=== PATIENT | male | born 1965 | race Caucasian/White ===

== ENCOUNTER 2020-02-26 13:52 | Emergency (ER) | payer OTHER ==
[~2020-02-26] VITALS: Ht 182.9 cm; Wt 59.0 kg
[2020-02-26] MEDS ORDERED: SYMBICORT160 MCG/4. INH (14:03)
[2020-02-26] MEDS ORDERED: ALBUTEROL2.5 MG/31 INH (14:03)
[2020-02-26] MEDS ORDERED: PROAIR HFA8.5 GM INH (14:03)
[2020-02-26] MEDS ORDERED: ZPAK PO (15:08)
[2020-02-26] MEDS ORDERED: PREDNISONE 20 M20 M1 PO (15:08)
[2020-02-26 15:31] VITALS: BP 114/79
== END 2020-02-26 15:31 | disposition home or self-care (01) ==
LOC: M.ERS 13:52
DX: J44.1 Chronic obstructive pulmonary disease with (acute) exacerbation (principal); Z20.828 Contact with and (suspected) exposure to other viral communicable diseases; J40 Bronchitis, not specified as acute or chronic; Z79.899 Other long term (current) drug therapy

== ENCOUNTER 2020-05-15 11:36 | Emergency (ER) | payer OTHER ==
[~2020-05-15] VITALS: Ht 182.9 cm; Wt 59.0 kg
[~2020-05-15 11:36] MED LIST: ALBUTEROL2.5 MG/31 INH; PREDNISONE 20 M20 M1 PO; PROAIR HFA8.5 GM INH; SYMBICORT160 MCG/4. INH; ZPAK PO
[2020-05-15] MEDS ORDERED: ZPAK PO (11:56)
[2020-05-15] MEDS ORDERED: PREDNISONE 20 M20 M1 PO ×2 (11:56→11:57)
[2020-05-15] MEDS ORDERED: VENTOLIN HFA 1818 GM INH ×2 (11:56→11:57)
[2020-05-15] MEDS ORDERED: DOXYCYCLINE 10100 MG PO (11:57)
[2020-05-15 12:08] VITALS: BP 123/61
== END 2020-05-15 12:09 | disposition home or self-care (01) ==
LOC: M.ERS 11:36
DX: J44.1 Chronic obstructive pulmonary disease with (acute) exacerbation (principal); J40 Bronchitis, not specified as acute or chronic; F17.210 Nicotine dependence, cigarettes, uncomplicated; Z79.899 Other long term (current) drug therapy

== ENCOUNTER 2020-06-08 18:40 | Emergency (ER) | payer OTHER ==
[~2020-06-08] VITALS: Ht 182.8 cm; Wt 63.5 kg
[~2020-06-08 18:40] MED LIST changes: +DOXYCYCLINE 10100 MG PO; +VENTOLIN HFA 1818 GM INH
[2020-06-08] MEDS ORDERED: PREDNISONE 10 M10 MG PO (20:05)
[2020-06-08] MEDS ORDERED: ZPAK PO (20:05)
[2020-06-08] MEDS ORDERED: BREO ELLIPTA 11 EACH INH (20:05)
[2020-06-08] MEDS ORDERED: VENTOLIN HFA 1818 GM INH (20:05)
[2020-06-08 20:12] VITALS: BP 125/70
== END 2020-06-08 20:13 | disposition home or self-care (01) ==
LOC: M.ERS 18:40
DX: J20.9 Acute bronchitis, unspecified (principal); Z20.822 Contact with and (suspected) exposure to COVID-19; J44.9 Chronic obstructive pulmonary disease, unspecified; F17.210 Nicotine dependence, cigarettes, uncomplicated

== ENCOUNTER 2020-11-24 16:18 | Emergency (ER) | payer OTHER ==
[~2020-11-24] VITALS: Ht 182.9 cm; Wt 77.1 kg
[~2020-11-24 16:18] MED LIST changes: +BREO ELLIPTA 11 EACH INH; +PREDNISONE 10 M10 MG PO
[2020-11-24] MEDS ORDERED: [UNRECOGNIZED DRUG - OTHER] (16:28)
[2020-11-24 16:37] LABS: ABSOLUTE BASOPHILS 0.1 thou/uL (0.0-0.2); ABSOLUTE EOSINOPHILS 0.3 thou/uL (0.0-0.7); ABSOLUTE LYMPHOCYTES 1.7 thou/uL (0.8-5.3); ABSOLUTE MONOCYTES 0.5 thou/uL (0.0-1.2); HEMATOCRIT 48.9 % (42.0-52.0); HEMOGLOBIN 16.6 gm/dL (14.0-18.0); LYMPHOCYTES 22.7 %; MCH 31.7 pg (26.0-34.0); MCHC 33.9 g/dL (28.0-37.0); MCV 93.5 fL (80.0-100.0); MPV 7.8 fl. (7.2-11.1); NUCLEATED RBCS 0 /100WBC; PLATELET COUNT* 309 thou/uL (150-400); POLYS 66.3 %; RBC 5.22 mil/uL (4.50-6.00); RDW-CV 14.8 % (10.5-14.5); WBC 7.5 thou/uL (4.0-11.0)
[2020-11-24 16:46] LABS: CALCIUM 8.3 mg/dL (8.5-10.1); CREATININE 0.9 mg/dL (0.6-1.3); POTASSIUM 4.2 mmol/L (3.5-5.1)
[2020-11-24 16:51] LABS: ALBUMIN 3.5 g/dL (3.4-5.0); TOTAL BILIRUBIN 0.3 mg/dL (<0.1-1.0); TOTAL PROTEIN 7.3 g/dL (6.4-8.2)
[2020-11-24] MEDS ORDERED: BREO ELLIPTA 11 EACH INH (17:59)
[2020-11-24] MEDS ORDERED: VENTOLIN HFA 1818 GM INH (17:59)
[2020-11-24] MEDS ORDERED: PREDNISONE50 MG PO (18:00)
[2020-11-24 18:06] VITALS: BP 144/68
--- NOTE | 2020-11-25 12:55 | EKG ---
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
== END 2020-11-24 18:07 | disposition home or self-care (01) ==
LOC: M.ERS 16:18
PROVIDERS: Emergency Medicine Emergency Medical Services
DX: J44.1 Chronic obstructive pulmonary disease with (acute) exacerbation (principal); F17.210 Nicotine dependence, cigarettes, uncomplicated; Z79.899 Other long term (current) drug therapy

== ENCOUNTER 2021-02-15 20:09 | Emergency (ER) | payer OTHER ==
[~2021-02-15] VITALS: Ht 182.9 cm; Wt 68.0 kg
[~2021-02-15 20:09] MED LIST changes: +PREDNISONE50 MG PO; +[UNRECOGNIZED DRUG - OTHER]
[2021-02-15] MEDS ORDERED: ANORO ELLIPTA1 EACH INH (20:20)
[2021-02-15 20:55] LABS: ABSOLUTE BASOPHILS 0.1 thou/uL (0.0-0.2); ABSOLUTE EOSINOPHILS 0.2 thou/uL (0.0-0.7); ABSOLUTE LYMPHOCYTES 1.9 thou/uL (0.8-5.3); ABSOLUTE MONOCYTES 0.6 thou/uL (0.0-1.2); ABSOLUTE NEUTROPHILS 4.3 thou/uL (1.6-8.1); BASOPHILS 1.2 %; EOSINOPHILS 3.1 %; HEMATOCRIT 51.8 % (42.0-52.0); HEMOGLOBIN 17.6 gm/dL (14.0-18.0); LYMPHOCYTES 27.3 %; MCH 32.1 pg (26.0-34.0); MCV 94.3 fL (80.0-100.0); MONOCYTES 8.4 %; MPV 8.2 fl. (7.2-11.1); NUCLEATED RBCS 0 /100WBC; PLATELET COUNT* 310 thou/uL (150-400); RBC 5.49 mil/uL (4.50-6.00); RDW-CV 14.3 % (10.5-14.5); WBC 7.1 thou/uL (4.0-11.0)
[2021-02-15 21:28] LABS: ALBUMIN 3.7 g/dL (3.4-5.0); CALCIUM 9.2 mg/dL (8.5-10.1); CREATININE 1.1 mg/dL (0.6-1.3); MAGNESIUM 2.3 mg/dL (1.8-2.4); POTASSIUM 3.9 mmol/L (3.5-5.1); TOTAL BILIRUBIN 0.6 mg/dL (<0.1-1.0); TOTAL PROTEIN 7.9 g/dL (6.4-8.2)
[2021-02-15] MEDS ORDERED: PREDNISONE50 MG PO (21:50)
[2021-02-15] MEDS ORDERED: ALBUTEROL2.5 MG/31 INH (21:51)
[2021-02-15 22:09] VITALS: BP 144/78
--- NOTE | 2021-02-17 14:16 | EKG ---
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: [place] : 1965 Requested By: Claudine Haskins Order Number: [id number] MD: Klever Ritchie Measurements Intervals [place] Rate: 106 P: 90 W[place]: 134 QRS: 90 QRSD: 79 T: 82 QT: 314 QTc: 417 Interpretive Statements Sinus tachycardia Atrial premature complexes Biatrial enlargement Borderline right axis deviation Baseline wander in lead(s) V5 Compared to ECG 11/24/2020 16:29:59 no change Electronically Signed On 02-17-2021 14:16:13 CDT by Klever Ritchie [email or web address] <ELECTRONICALLY SIGNED> By: Klever Ritchie MD, FACC 02/17/21 1416 34 34 Klever Ritchie MD, [facility] /EPI
== END 2021-02-15 22:09 | disposition home or self-care (01) ==
LOC: M.ERS 20:09
PROVIDERS: Emergency Medicine
DX: J44.1 Chronic obstructive pulmonary disease with (acute) exacerbation (principal); Z20.822 Contact with and (suspected) exposure to COVID-19; J45.909 Unspecified asthma, uncomplicated; F17.210 Nicotine dependence, cigarettes, uncomplicated; Z79.899 Other long term (current) drug therapy